=== PATIENT | male | born 1965 | race Two or more races ===

== ENCOUNTER → 2022-12-22 | Outpatient (CLI) | payer OTHER | LOC: M RAD 07:29 | PROVIDERS: ATTEND Registered Nurse | DX: F17.210 Nicotine dependence, cigarettes, uncomplicated (principal) ==

== ENCOUNTER 2023-02-17 11:21 | Day surgery (SDC) | payer OTHER ==
[~2023-02-17] VITALS: Ht 172.7 cm; Wt 83.7 kg
[~2023-02-17 11:21] MED LIST: NS 1,000 ML IV ONE
[2023-02-17] MEDS ORDERED: propofoL 200 MG/20 ML VIAL As Ordered ONE (13:12)
[2023-02-17 13:19] VITALS: TEMP 97.5
[2023-02-17 13:30] VITALS: BP 112/66; O2SAT 98
== END 2023-02-17 13:35 | disposition home or self-care (01) ==
LOC: M OPP 11:21
PROVIDERS: ATTEND Surgery
DX: Z12.11 Encounter for screening for malignant neoplasm of colon (principal); K64.0 First degree hemorrhoids; L40.9 Psoriasis, unspecified; F17.210 Nicotine dependence, cigarettes, uncomplicated